=== PATIENT | female | born 2000 | race Caucasian/White ===

== ENCOUNTER → 2020-05-09 | Outpatient (CLI) | payer BC, OTHER ==
--- NOTE | 2020-05-09 15:59 | Diagnostic Imaging Report ---
INDICATION: Palpable lump in the right breast. FINDINGS: Sonographic interrogation of the area of lump in the right breast was performed. This corresponds to the 11:30 location, 3 cm from the nipple. There is a circumscribed, ovoid solid-appearing nodule just below the skin surface measuring 1.1 x 0.5 x 0.9 cm. This demonstrates mild posterior acoustic enhancement. There is internal vascularity. This is most consistent with a fibroadenoma. No other abnormalities are detected. IMPRESSION: Circumscribed solid nodule at the 11:30 location of the right breast, 3 cm from the nipple. This corresponds to the patient's palpable abnormality. Imaging characteristics are most consistent with a fibroadenoma. A followup right breast ultrasound in 6 months is recommended to show continued stability. ACR BI-RADS Category 3: Probably benign findings. Dictated by: Dictated on workstation # [id number]
== END ==
LOC: RAD 14:15
DX: N63.11 Unspecified lump in the right breast, upper outer quadrant (principal)

== ENCOUNTER → 2021-01-23 | Outpatient (CLI) | payer BC, OTHER ==
--- NOTE | 2021-01-23 15:27 | Diagnostic Imaging Report ---
INDICATION: Right breast nodule. Patient presents for six-month follow-up. COMPARISON: Correlation is made with prior ultrasound from 05/09/2020. EXAMINATION: Sonographic interrogation of the 11:30 location of the right breast, 3 cm from the nipple, was performed. FINDINGS: Circumscribed hypoechoic solid nodule just below the skin surface is again noted measuring 1.1 x 0.5 x 1.2 cm. This compares with 1.1 x 0.5 x 0.9 cm on prior exam. No new mass is detected. IMPRESSION: Very similar appearance to the solid nodule at 11:30 location right breast, 3 cm from the nipple, when compared with study dating back to 05/09/2020. This again is most consistent with a fibroadenoma. Additional six-month follow-up is recommended with ultrasound to show continued stability. ACR BI-RADS Category 3: Probably benign findings. Dictated by: Dictated on workstation # [id number]
== END ==
LOC: RAD 14:15
DX: N63.10 Unspecified lump in the right breast, unspecified quadrant (principal)

== ENCOUNTER → 2022-02-07 | Outpatient (CLI) | payer OTHER ==
--- NOTE | 2022-02-07 14:04 | Diagnostic Imaging Report ---
INDICATION: Palpable lump, right breast. COMPARISON: No prior studies are available for comparison. Unilateral right 2-D and 3-D diagnostic mammography was performed with CAD. The right breast is heterogeneously dense, limiting the sensitivity of mammography. There is a rounded density in the upper outer retroareolar right breast at the area palpable abnormality. This has smooth margins. No other masses are seen. No malignant-appearing microcalcifications are identified. The right axilla is unremarkable. IMPRESSION: BI-RADS Category 0 Circumscribed nodule in the upper outer right breast anterior depth, likely accounting for the palpable abnormality as well as the previously noted benign nodule sonographically. Further evaluation of this area with ultrasound is recommended and will be performed today. ACR BI-RADS Category 0: Incomplete. (Needs additional imaging evaluation). Result letter will be mailed to the patient. Note: At least 10% of breast cancer is not imaged by mammography. Dictated by: Dictated on workstation # [id number]
--- NOTE | 2022-02-07 19:04 | Diagnostic Imaging Report ---
INDICATION: Right breast mass. COMPARISON: Correlation is made prior ultrasound from 01/23/2021. FINDINGS: Sonographic interrogation of the area of palpable abnormality and known right breast mass was performed. This corresponds to the 11:30 location, 3 cm from the nipple. Ovoid, wider than tall, solid nodule measures 1.4 x 0.6 x 1.4 cm compared with 1.1 x 0.6 x 1.2 cm. There is some internal vascularity. No new mass is seen. IMPRESSION: Slight increase in size of benign-appearing nodule at the 11:30 location of right breast, 3 cm from the nipple, when compared with study of one year earlier. This again most likely represents a fibroadenoma. Due to slight increase in size, follow-up ultrasound in six months would be recommended for further evaluation. ACR BI-RADS Category 3: Probably benign findings. Result letter will be mailed to the patient. Note: At least 10% of breast cancer is not imaged by mammography. Dictated by: Dictated on workstation # [id number]
== END ==
LOC: RAD 12:45
PROVIDERS: ATTEND Obstetrics & Gynecology
DX: N63.13 Unspecified lump in the right breast, lower outer quadrant (principal)
CPT/HCPCS: 76642; 77065; G0279

== ENCOUNTER 2022-05-05 05:30 | Outpatient (CLI) | payer OTHER ==
[~2022-05-05] VITALS: Ht 152.4 cm; Wt 56.4 kg
[2022-05-05] MEDS ORDERED: BIRTH CONTROL (09:15)
== END 2022-05-05 09:47 | disposition home or self-care (01) ==
LOC: PREOP 05:30
PROVIDERS: ATTEND Surgery
DX: Z01.818 Encounter for other preprocedural examination (principal)

== ENCOUNTER 2022-05-08 10:14 | Day surgery (SDC) | payer OTHER ==
--- NOTE | 2022-04-28 10:11 | HISTORY AND PHYSICAL ---
[facility] HISTORY AND PHYSICAL DATE OF ADMISSION: 05/08/2022. ATTENDING PRIMARY CARE PHYSICIAN: Dr. Garcia and Dr. Castanon. HISTORY OF PRESENT ILLNESS: The patient is a 22-year-old female, who is referred over to us for a lump in the left breast. She reports that this was first noticed a little over a year ago and reports that she has had two previous ultrasounds, which did show the lesion was most likely consistent with a fibroadenoma. She then underwent a recent diagnostic mammogram of the right breast, which did show a circumscribed nodule in the upper outer right breast anterior depth. She then underwent another ultrasound of the right breast, which did show a lesion at the 11:30 location 3 cm from the nipple, which was ovoid and wider than tall and looked solid. This measured 1.4 x 0.6 x 1.4 and had slightly increased in size compared to the prior examination. This was again most likely consistent with a fibroadenoma. Upon further questioning, she reports that she has been able to palpate the lump. She reports that she does do self breast exams monthly. She reports that she started menses around the age of 10 and has taken her control for 7 years. She reports that she has never been . She denies any nipple discharge, pain or any breast asymmetries. She does report a remote family history of breast cancer with her paternal grandmother as well as paternal aunt having the disease. MEDICAL HISTORY: None. PAST SURGICAL HISTORY: Tonsillectomy, repair of clubfeet as an . ALLERGIES; CASHEWS. MEDICATIONS: Apri daily. SOCIAL HISTORY: Negative for tobacco smoke, for alcohol. FAMILY HISTORY: Mother, hypertension. Paternal grandmother, breast cancer. REVIEW OF SYSTEMS: This is a well-nourished female in no acute distress. She is not experiencing any shortness of breath or difficulty breathing. No chest pain, palpitations or diaphoresis. She does report a palpable lump that is enlarging of the right breast. No nausea, vomiting or abdominal pain. No diarrhea or constipation. No red blood per rectum. No dark tarry stools. No fever or chills. No recent inadvertent weight loss. All other review of systems negative. PHYSICAL EXAMINATION: VITAL SIGNS: Blood pressure is 120/85. Current weight is 129.9 pounds at 5 feet 0 inches. LUNGS: Chest clear, good breath sounds bilaterally. HEART: Regular, no murmurs. EXTREMITIES: No lower extremity edema. Negative Homans sign. HEENT: No scleral icterus. No cervical lymphadenopathy. ABDOMEN: Soft, nontender, and nondistended. BREASTS: There is a small palpable lesion of the right breast at the 11 to 12 o'clock position. This is well circumscribed and nontender to palpation. This is approximately 1 to 1.5 cm in size. There is no skin dimpling, nipple discharge or any breast asymmetries. There is a normal breast of the left with no palpable abnormalities. SKIN: Warm, dry and pink. NEUROLOGIC: Awake, alert and oriented x3. ASSESSMENT: A 22-year-old female with a persistent mass of the right breast. At this time, she would like to proceed with an excisional biopsy of the lesion. The risks and benefits of the procedure as well as the procedure and homecare instructions were explained to the patient. She verbalized understanding of instructions and agrees. PLAN: At this time, we will proceed with scheduling her for excision of a right breast mass. Job ID: [id number] DocumentID: [id number] Dictated Date: 04/28/2022 08:45:33 Public Health Service Officer Date: 04/28/2022 10:08:00 Dictated By: CAITLYN MANZANO APRN
[2022-05-08] VITALS (7 sets, daily range): BP systolic 107–124; BP diastolic 63–90
[~2022-05-08] VITALS: Ht 152.4 cm; Wt 56.4 kg
[~2022-05-08 10:14] MED LIST: BIRTH CONTROL
[2022-05-08] MEDS ORDERED: LIDOCAINE/EPI 1%-1:100,000 (XYLOCAINE) 10 ML ONE (10:31)
--- NOTE | 2022-05-08 10:39 | Progress Note-Pre Operative ---
Pre-Operative Progress Note Date H&P Reviewed: May 08, 2022 Time H&P Reviewed: 10:35 History & Physical: H&P Reviewed, Patient Examed, No changes noted Pre-Operative Diagnosis: Right breast mass CAITLYN MANZANO LACQUER POLISHER May 08, 2022 10:39
[2022-05-08] MEDS ORDERED: HYDR-3817 PO (10:42)
--- NOTE | 2022-05-08 10:42 | Discharge Inst-Surgical ---
D/C Lap Instructions-KIDO Reconcile Patient Problems Problems Reviewed?: Yes New, Converted, or Re-Newed RX: RX on Chart Follow Up Appt in 2 weeks Activity as tolerated No driving for 24 hours No [address] while on pain medications Incentive Spirometry use every 2 hours while awake Regular Diet Symptoms to Report: Fever over 101 degree F, Nausea/Vomiting Infection Signs and Symptoms to report: Increased redness, Foul odor of wound, Increased drainage Bathing instructions: May shower Operative Area Clean/Dry; Keep incision clean/dry If any problems/questions: Contact your physician or go to Emergency Room CAILTYN MANZANO APRN May 08, 2022 10:42
[2022-05-08] MEDS ORDERED: ACETAMINOPHEN 325 MG TABLET PO PRN (10:45)
[2022-05-08] MEDS ORDERED: ONDANSETRON 4 MG/2 ML (SDV) Z0FRAN IVP PRN (10:45)
[2022-05-08] MEDS ORDERED: HYDROcodone/APAP 5 MG/325 MG (LORTAB) TAB PO ONE (10:45)
[2022-05-08] MEDS ORDERED: morphine INJ 10 MG/ML 1ML (SYR OR VIAL) IVP PRN (10:45)
[2022-05-08] MEDS ORDERED: LIDOCAINE PF 2% 5 ML (XYLOCAINE) VIAL ONE (10:47)
[2022-05-08] MEDS ORDERED: fentaNYL INJ 100 MCG/2 ML AMP ONE (10:47)
[2022-05-08] MEDS ORDERED: MIDAZOLAM 2 MG/2 ML (VERSED) VIAL ONE (10:47)
[2022-05-08] MEDS ORDERED: proPOfol 200 MG/20 ML (DIPRIVAN) VIAL IV ONE (10:47)
[2022-05-08] MEDS ORDERED: SEVOFLURANE (ULTANE) 15 ML INHAL SOLN ONE (10:47)
[2022-05-08] MEDS ORDERED: ONDANSETRON 4 MG/2 ML (SDV) Z0FRAN ONE ×2 (10:47→11:51)
[2022-05-08] MEDS ORDERED: ceFAZolin INJECTION 1,000 MG in NS (IVPB) 50 ML IV ONE (11:00)
[2022-05-08] MEDS ORDERED: LACTATED RINGERS 1,000 ML IV PRN (11:15)
[2022-05-08] MEDS ORDERED: SCOPOLAMINE 1.5 MG (TRANSDERM-SCOP) PATCH ONE (11:51)
[2022-05-08] MEDS ORDERED: FAMOTIDINE 20MG/2ML IV (PEPCID) ONE (11:52)
[2022-05-08] MEDS ORDERED: PROPOFOL INJECTION 50 ML IV ONE (11:56)
[2022-05-08] MEDS ORDERED: SCOPOLAMINE 1.5 MG (TRANSDERM-SCOP) PATCH TOP ONE (12:00)
[2022-05-08] MEDS ORDERED: FAMOTIDINE 20MG/2ML IV (PEPCID) IV NR (12:00)
[2022-05-08] MEDS ORDERED: ONDANSETRON 4 MG/2 ML (SDV) Z0FRAN IV ONE (12:00)
[2022-05-08] MEDS ORDERED: KETAMINE 50 MG/5 ML SYRINGE ONE (12:07)
[2022-05-08] MEDS ORDERED: LIDOCAINE/EPI 1%-1:100,000 (XYLOCAINE) 10 ML INJ ONE (12:22)
--- NOTE | 2022-05-08 12:43 | Progress Note-Post Operative ---
Post-Operative Progess Note Surgeon (s)/Jailer/Training Officer (s) Surgeon KASI LOPEZ MD Jailer/Training Officer: kal hayes [employer] SHARED SERVICES CONSULTANT Pre-Operative Diagnosis Right breast mass Post-Operative Diagnosis same Procedure & Operative Findings Date of Procedure 05/08/22 Procedure Performed/Findings right breast biopsy Anesthesia Type mac with local Estimated Blood Loss Estimated blood loss (mL): minimal Specimens/Packing Specimens Removed right breast lesion KASI LOPEZ MD May 08, 2022 12:43
--- NOTE | 2022-05-08 15:38 | OPERATIVE REPORT ---
DATE OF SERVICE: 05/08/2022 ATTENDING PRIMARY CARE PHYSICIAN: Dr. Janiya Garcia. PREOPERATIVE DIAGNOSIS: Persistent right breast nodule. POSTOPERATIVE DIAGNOSIS: Persistent right breast nodule. PROCEDURE PERFORMED: Excision of right breast nodule at approximately the 11 o'clock position, 2 cm from the nipple areolar complex, zone II. SURGEON: Kasi Lopez MD. SENIOR INFORMATION SECURITY ENGINEER: Paulino Calabrese APRN. ANESTHESIA: Monitored anesthesia care with local. ESTIMATED BLOOD LOSS: Minimal. FINDINGS: A well-circumscribed right breast lesion, likely fibroadenoma; however, could not rule out the possibility of a cystosarcoma phyllodes. DISPOSITION: The patient tolerated the procedure well. INDICATIONS FOR PROCEDURE: The patient is a 22-year-old female, who noticed a lump in the right breast and this was over a year ago. She had two previous ultrasounds that were consistent with a fibroadenoma. She underwent a recent mammogram, which did show the lesion again at approximately the 11 o'clock position, which was 1.5 x 1.5 cm and has grown slightly larger in size. She does do self-breast exams on a monthly basis and has felt the nodule and feels that the lesion has slightly grown larger in size over the time. She began menses at around age 10 and has taken oral contraceptive pills for approximately 7 years and has never been . She does not report any abnormal nipple discharge, pain or any breast asymmetries or any lymphadenopathy. She does have a remote family history of breast cancer with her paternal grandmother as well as paternal aunt having the disease. DESCRIPTION OF PROCEDURE: The patient was brought to the operating room and laid supine on the table. After adequate IV pain and sedative medications and monitored anesthesia care, the chest and neck were prepped and draped in a standard surgical fashion. A 1% lidocaine with epinephrine was then used to anesthetize the nipple areolar complex at approximately the 9 to 12 o'clock position and a crescent-shaped skin incision was made using a #15 blade. The subcutaneous tissue was then dissected using electrocautery. The breast lesion was identified and well circumscribed and consistent with a fibroadenoma. This was then fully excised with a rim of normal appearing breast tissue using electrocautery with visualization of good hemostasis. Good hemostasis was observed. No other lesions identified. The subcutaneous tissue was reapproximated using 3-0 Vicryl interrupted suture and the skin was closed using 4-0 Monocryl running subcuticular suture. Wound was then cleaned and covered with Dermabond. The patient tolerated the procedure well. We will have her follow up in the office in approximately two weeks to evaluate the wound as well as also to discuss the pathology results. Job ID: [id number] DocumentID: [id number] Dictated Date: 05/08/2022 12:35:42 Refractive Surgeon Date: 05/08/2022 15:35:00 Dictated By: KASI LOPEZ MD
== END 2022-05-08 13:45 | disposition home or self-care (01) ==
LOC: SDC 10:14
PROVIDERS: ATTEND Surgery
DX: D17.1 Benign lipomatous neoplasm of skin and subcutaneous tissue of trunk (principal)
CPT/HCPCS: 84703; 87081; 88304